=== PATIENT | female | born 1995 | race Caucasian/White ===

== ENCOUNTER 2017-02-21 11:23 | Emergency (ER) | payer SELFPAY ==
[2017-02-21] MEDS ORDERED: NORMAL SALINE 1000 ML 1,000 ML IV PRN (11:49)
[2017-02-21] MEDS ORDERED: METOCLOPRAMIDE HCL INJ/PF 10 MG/2 ML SDV IV ONE (11:49)
--- NOTE | 2017-02-21 11:51 | ER Document Report ---
ED Medical Screen (RME) - General Chief Complaint: Abdominal Pain Stated Complaint: NAUSEA/VOMITING Time Seen by Provider: 02/21/17 11:46 TRAVEL OUTSIDE OF THE [place] IN LAST 30 DAYS: No - HPI Patient complains to provider of: Nausea and vomiting Onset: Other - 2 days Quality of pain: Achy Associated Symptoms: Nausea, Vomiting Notes: 02/21/17 11:52 21-year-old female who presents to the emergency room for epigastric abdominal pain with nausea and vomiting 2 days duration, reports chills and subjective fever, no specific sick contacts that she works in a [employer] center, unsure whether she could be or not - Related Data Allergies/Adverse Reactions: ziprasidone HCl [From Geodon] Allergy (Intermediate, Verified 02/21/17 11:35) Oral swelling ziprasidone mesylate [From Geodon] Allergy (Intermediate, Verified 02/21/17 11: 35) Oral swelling amoxicillin [Amoxicillin] Allergy (Verified 02/21/17 11:35) Rash Past Medical History Pulmonary Medical History: Denies: Hx Asthma Endocrine Medical History: Denies: Hx Diabetes Mellitus Type 1, Hx Diabetes Mellitus Type 2 Renal/ Medical History: Denies: Hx Peritoneal Dialysis GI Medical History: Reports: Hx Gastroesophageal Reflux Disease Skin Medical History: Reports Hx Eczema Psychiatric Medical History: Reports: Hx Anxiety, Hx Attention Deficit Hyperactivity Disorder, Hx Bipolar Disorder, Hx Depression, Hx Post Traumatic Stress Disorder - Immunizations Immunizations up to date: Yes Hx Diphtheria, Pertussis, Tetanus Vaccination: Yes - 2013 Physical Exam - Vital signs Vitals: Temp Pulse Resp BP Pulse Ox 99.7 F 116 H 20 114/78 98 02/21/17 11:35 02/21/17 11:35 02/21/17 11:35 02/21/17 11:35 02/21/17 11:35 Course - Vital Signs Vital signs: Temp Pulse Resp BP Pulse Ox 99.7 F 116 H 20 114/78 98 02/21/17 11:35 02/21/17 11:35 02/21/17 11:35 02/21/17 11:35 02/21/17 11:35
[2017-02-21 12:29] LABS: ABSOLUTE BASOPHILS # (AUTO) 0.1 10^3/uL (0.0-0.2); ABSOLUTE EOSINOPHILS # (AUTO) 0.1 10^3/uL (0.0-0.6); ABSOLUTE LYMPHOCYTES (AUTO) 1.5 10^3/uL (0.5-4.7); ABSOLUTE NEUT (AUTO) 10.9 10^3/uL (1.7-8.2); BASOPHILS % (AUTO) 0.9 % (0-2); EOSINOPHILS % (AUTO) 0.5 % (0-6); HEMATOCRIT 42.4 % (36.0-47.0); HEMOGLOBIN 13.7 g/dL (12.0-15.5); HGB HCT DIFFERENCE -1.3; LYMPHOCYTES % (AUTO) 11.1 % (13-45); MEAN CORPUSCULAR HEMOGLOBIN 26.9 pg (27.0-33.4); MEAN CORPUSCULAR HGB CONC 32.3 g/dL (32.0-36.0); MEAN CORPUSCULAR VOLUME 83 fl (80-97); MONOCYTES % (AUTO) 7.3 % (3-13); RED BLOOD COUNT 5.09 10^6/uL (3.72-5.28); RED CELL DISTRIBUTION WIDTH 14.1 % (11.5-14.0); SEGMENTED NEUTROPHILS % (AUTO) 80.2 % (42-78); WHITE BLOOD COUNT 13.6 10^3/uL (4.0-10.5)
[2017-02-21 12:47] LABS: ALANINE AMINOTRANSFERASE 48 U/L (9-52); ALBUMIN 4.6 g/dL (3.5-5.0); ALKALINE PHOSPHATASE 133 U/L (38-126); ANION GAP 15 (5-19); ASPARTATE AMINO TRANSFERASE 27 U/L (14-36); BILIRUBIN,DIRECT 0.3 mg/dL (0.0-0.4); BILIRUBIN,TOTAL 0.7 mg/dL (0.2-1.3); BLOOD UREA NITROGEN 9 mg/dL (7-20); CALCIUM 9.6 mg/dL (8.4-10.2); CARBON DIOXIDE 21 mmol/L (22-30); CHLORIDE 104 mmol/L (98-107); CREATININE RESULT 0.85 mg/dL (0.52-1.25); GLUCOSE 95 mg/dL (75-110); LIPASE 139.6 U/L (23-300); POTASSIUM 4.5 mmol/L (3.6-5.0); SODIUM 140.1 mmol/L (137-145); TOTAL PROTEIN 8.3 g/dL (6.3-8.2)
[2017-02-21 12:53] LABS: APPEARANCE,URINE SLIGHTLY-CLOUDY; BILIRUBIN,URINE NEGATIVE (NEGATIVE); GLUCOSE, URINE NEGATIVE (NEGATIVE); KETONES,URINE TRACE mg/dL (NEGATIVE); LEUKOCYTE ESTERASE,URINE TRACE (NEGATIVE); NITRITE,URINE NEGATIVE (NEGATIVE); PROTEIN,URINE 30 mg/dL (NEGATIVE); URINE SPECIFIC GRAVITY 1.033; UROBILINOGEN,URINE NEGATIVE mg/dL (<2.0)
--- NOTE | 2017-02-21 14:03 | ER Document Report ---
ED GI/ - General Mode of Arrival: Ambulatory Information source: Patient TRAVEL OUTSIDE OF THE [place] IN LAST 30 DAYS: No - HPI Patient complains to provider of: Vomiting Associated symptoms: Other - See above <MALI BAKER - Last Filed: 02/21/17 14:24> <JENNIFER CLARK - Last Filed: 02/21/17 18:55> - General Chief Complaint: Vomiting Stated Complaint: NAUSEA/VOMITING Time Seen by Provider: 02/21/17 11:46 Notes: Patient is a 21 year old female who presents to the emergency department complaining of vomiting. Patient has been seen at this facility multiple times for vomiting. Patient reports she feels fine now and denies headache, abdominal pain, and nausea. Patient requests a work note. (MALI BAKER) - Related Data Allergies/Adverse Reactions: ziprasidone HCl [From Geodon] Allergy (Intermediate, Verified 02/21/17 11:35) Oral swelling ziprasidone mesylate [From Geodon] Allergy (Intermediate, Verified 02/21/17 11: 35) Oral swelling amoxicillin [Amoxicillin] Allergy (Verified 02/21/17 11:35) Rash Past Medical History - General Information source: Patient - Social History Smoking Status: Unknown if Ever Smoked Family History: Reviewed & Not Pertinent Patient has suicidal ideation: No Patient has homicidal ideation: No GI Medical History: Reports: Hx Gastroesophageal Reflux Disease Skin Medical History: Reports Hx Eczema Psychiatric Medical History: Reports: Hx Anxiety, Hx Attention Deficit Hyperactivity Disorder, Hx Bipolar Disorder, Hx Depression, Hx Post Traumatic Stress Disorder Surgical Hx: Negative - Immunizations Immunizations up to date: Yes Hx Diphtheria, Pertussis, Tetanus Vaccination: Yes - 2013 <MALI BAKER - Last Filed: 02/21/17 14:24> Review of Systems - Review of Systems Constitutional: No symptoms reported EENT: No symptoms reported Cardiovascular: No symptoms reported Respiratory: No symptoms reported Gastrointestinal: See HPI, Vomiting. denies: Abdominal pain, Diarrhea Genitourinary: No symptoms reported Female Genitourinary: No symptoms reported Musculoskeletal: No symptoms reported Skin: No symptoms reported Hematologic/Lymphatic: No symptoms reported Neurological/Psychological: denies: Headaches -: Yes All other systems reviewed and negative <MALI BAKER - Last Filed: 02/21/17 14:24> Physical Exam - Vital signs Interpretation: Normal - General General appearance: Appears well, Alert - HEENT Head: Normocephalic, Atraumatic Mucous membranes: Dry - Respiratory Respiratory status: No respiratory distress Chest status: Nontender Breath sounds: Normal Chest palpation: Normal - Cardiovascular Rhythm: Tachycardia Heart sounds: Normal auscultation Murmur: No - Back Back: Normal, Nontender - Extremities General upper extremity: Normal inspection General lower extremity: Normal inspection - Neurological Neuro grossly intact: Yes Cognition: Normal Orientation: AAOx4 Александр Coma Scale Eye Opening: Spontaneous Александр Coma Scale Verbal: Oriented Александр Coma Scale Motor: Obeys Commands [place] Coma Scale Total: 15 Speech: Normal - Psychological Associated symptoms: Normal affect, Normal mood - Skin Skin Temperature: Warm Skin Moisture: Dry Skin Color: Normal <MALI BAKER - Last Filed: 02/21/17 14:24> Course - Laboratory Result Diagrams: 02/21/17 12:00 02/21/17 12:00 <MALI BAKER - Last Filed: 02/21/17 14:24> - Laboratory Result Diagrams: 02/21/17 12:00 02/21/17 12:00 <JENNIFER CLARK - Last Filed: 02/21/17 18:55> - Re-evaluation Re-evalutation: 02/21/17 18:55 Patient feels better after medications and fluids. Blood work within normal limits. No abdominal pain or tenderness to palpation. She will be discharged home with Reglan. Return if any worsening or concerning symptoms. Stable for discharge. (JENNIFER CLARK) - Vital Signs Vital signs: Temp Pulse Resp BP Pulse Ox 98.0 F 100 20 119/66 97 02/21/17 14:27 02/21/17 14:27 02/21/17 11:35 02/21/17 14:27 02/21/17 14:27 - Laboratory Laboratory results interpreted by ok: 02/21/17 02/21/17 02/21/17 11:55 12:00 12:00 WBC 13.6 H MCH 26.9 L RDW 14.1 H Seg Neutrophils % 80.2 H Lymphocytes % 11.1 L Absolute Neutrophils 10.9 H Carbon Dioxide 21 L Alkaline Phosphatase 133 H Total Protein 8.3 H Urine Protein 30 H Urine Ketones TRACE H Ur Leukocyte Esterase TRACE H Discharge <MALI BAKER - Last Filed: 02/21/17 14:24> <JENNIFER CLARK - Last Filed: 02/21/17 18:55> - Discharge Clinical Impression: Dehydration Vomiting Qualifiers: Vomiting type: unspecified Vomiting Intractability: non-intractable Nausea presence: with nausea Qualified Code(s): R11.2 - Nausea with vomiting, unspecified Condition: Stable Disposition: HOME, SELF-CARE Instructions: Vomiting ([facility]), Intravenous (IV) Fluids ([facility]), Dehydration ([facility]) Prescriptions: Metoclopramide HCl [Reglan 10 mg Tablet] 1 tab PO TIDP PRN #25 tablet PRN Reason: Forms: Return to Work Scribe Attestation: 02/21/17 18:55 I personally performed the services described in the documentation, reviewed and edited the documentation which was dictated to the scribe in my presence, and it accurately records my words and actions. (JENNIFER CLARK) Scribe Documentation - Scribe Written by Carol:: carol Velasco, 02/21/17, [id number] acting as scribe for :: Leonora <MALI BAKER - Last Filed: 02/21/17 14:24>
[2017-02-21 14:30] VITALS: BP 119/66
== END 2017-02-21 14:30 | disposition home or self-care (01) ==
LOC: ER 11:23
DX: E86.0 Dehydration (principal); R11.2 Nausea with vomiting, unspecified; K21.9 Gastro-esophageal reflux disease without esophagitis; Z88.0 Allergy status to penicillin
CPT/HCPCS: 99284; 96361; 96374; 36415; 87086; 83690; 84703; 85025; 80053; 81001; J2765; J7030

== ENCOUNTER 2017-07-28 17:09 | Emergency (ER) | payer SELFPAY ==
[2017-07-28 19:37] LABS: ABSOLUTE BASOPHILS # (AUTO) 0.1 10^3/uL (0.0-0.2); ABSOLUTE EOSINOPHILS # (AUTO) 0.1 10^3/uL (0.0-0.6); ABSOLUTE LYMPHOCYTES (AUTO) 2.9 10^3/uL (0.5-4.7); ABSOLUTE MONOCYTES (AUTO) 0.9 10^3/uL (0.1-1.4); ABSOLUTE NEUT (AUTO) 7.7 10^3/uL (1.7-8.2); BASOPHILS % (AUTO) 0.5 % (0-2); EOSINOPHILS % (AUTO) 0.7 % (0-6); HEMATOCRIT 36.5 % (36.0-47.0); HEMOGLOBIN 12.1 g/dL (12.0-15.5); HGB HCT DIFFERENCE -0.2; LYMPHOCYTES % (AUTO) 24.6 % (13-45); MEAN CORPUSCULAR HEMOGLOBIN 27.3 pg (27.0-33.4); MEAN CORPUSCULAR HGB CONC 33.2 g/dL (32.0-36.0); MEAN CORPUSCULAR VOLUME 82 fl (80-97); MONOCYTES % (AUTO) 8.2 % (3-13); RED BLOOD COUNT 4.45 10^6/uL (3.72-5.28); RED CELL DISTRIBUTION WIDTH 14.3 % (11.5-14.0); WHITE BLOOD COUNT 11.6 10^3/uL (4.0-10.5)
[2017-07-28 19:53] LABS: BILIRUBIN,URINE NEGATIVE (NEGATIVE); GLUCOSE, URINE NEGATIVE (NEGATIVE); KETONES,URINE NEGATIVE (NEGATIVE); LEUKOCYTE ESTERASE,URINE TRACE (NEGATIVE); NITRITE,URINE NEGATIVE (NEGATIVE); PROTEIN,URINE 30 mg/dL (NEGATIVE)
[2017-07-28 19:54] LABS: APPEARANCE,URINE HAZY
[2017-07-28 20:00] LABS: ALANINE AMINOTRANSFERASE 45 U/L (9-52); ALBUMIN 4.3 g/dL (3.5-5.0); ALKALINE PHOSPHATASE 107 U/L (38-126); ANION GAP 15 (5-19); ASPARTATE AMINO TRANSFERASE 25 U/L (14-36); BILIRUBIN,DIRECT 0.4 mg/dL (0.0-0.4); BILIRUBIN,TOTAL 0.4 mg/dL (0.2-1.3); BLOOD UREA NITROGEN 10 mg/dL (7-20); CALCIUM 9.1 mg/dL (8.4-10.2); CARBON DIOXIDE 21 mmol/L (22-30); CHLORIDE 106 mmol/L (98-107); CREATININE RESULT 0.64 mg/dL (0.52-1.25); GLUCOSE 104 mg/dL (75-110); POTASSIUM 4.2 mmol/L (3.6-5.0); SODIUM 141.7 mmol/L (137-145); TOTAL PROTEIN 7.2 g/dL (6.3-8.2)
--- NOTE | 2017-07-28 20:23 | ER Document Report ---
ED Dizziness/Weakness - General Chief Complaint: Exhaustion, mood swings, weakness Stated Complaint: FEELING WEAK Time Seen by Provider: 07/28/17 18:48 Mode of Arrival: Ambulatory Information source: Patient Notes: Patient states that she has been feeling weak with mood swings for about 2 weeks. She states she is unsure if she is depressed or if there may be something physically wrong with her. Nothing makes it better or worse. There is no radiation symptoms. Symptoms have been intermittent. They are moderate to severe. Patient denies any suicidal or homicidal ideation. No auditory or visual hallucinations. TRAVEL OUTSIDE OF THE [place] IN LAST 30 DAYS: No - Related Data Allergies/Adverse Reactions: ziprasidone HCl [From Geodon] Allergy (Intermediate, Verified 05/09/17 15:42) Oral swelling ziprasidone mesylate [From Geodon] Allergy (Intermediate, Verified 05/09/17 15: 42) Oral swelling amoxicillin [Amoxicillin] Allergy (Verified 05/09/17 15:42) Rash Past Medical History - General Information source: Patient - Social History Smoking Status: Never Smoker Frequency of alcohol use: None Drug Abuse: None Family History: Reviewed & Not Pertinent Patient has suicidal ideation: No Patient has homicidal ideation: No Pulmonary Medical History: Denies: Hx Asthma Endocrine Medical History: Denies: Hx Diabetes Mellitus Type 1, Hx Diabetes Mellitus Type 2 Renal/ Medical History: Denies: Hx Peritoneal Dialysis GI Medical History: Reports: Hx Gastroesophageal Reflux Disease Skin Medical History: Reports Hx Eczema Psychiatric Medical History: Reports: Hx Anxiety, Hx Attention Deficit Hyperactivity Disorder, Hx Bipolar Disorder, Hx Depression, Hx Post Traumatic Stress Disorder - Immunizations Immunizations up to date: Yes Hx Diphtheria, Pertussis, Tetanus Vaccination: Yes - 2013 Review of Systems - Review of Systems Constitutional: Malaise, Weakness. denies: Chills, Fever Respiratory: denies: Cough, Short of breath Gastrointestinal: denies: Diarrhea, Vomiting -: Yes All other systems reviewed and negative Physical Exam - Vital signs Vitals: Temp Pulse Resp BP Pulse Ox 99.0 F 104 H 16 123/82 97 07/28/17 17:14 07/28/17 17:14 07/28/17 17:14 07/28/17 17:14 07/28/17 17:14 Interpretation: Hypertensive, Tachycardic - General General appearance: Appears well, Alert - HEENT Head: Normocephalic, Atraumatic Eyes: Normal Pupils: PERRL - Respiratory Respiratory status: No respiratory distress Chest status: Nontender Breath sounds: Normal Chest palpation: Normal - Cardiovascular Rhythm: Regular Heart sounds: Normal auscultation Murmur: No - Abdominal Inspection: Normal Distension: No distension Bowel sounds: Normal Tenderness: Nontender Organomegaly: No organomegaly - Back Back: Normal, Nontender - Extremities General upper extremity: Normal inspection, Nontender, Normal color, Normal ROM , Normal temperature General lower extremity: Normal inspection, Nontender, Normal color, Normal ROM , Normal temperature, Normal weight bearing. No: Vahe's sign - Neurological Neuro grossly intact: Yes Cognition: Normal Orientation: AAOx4 Александр Coma Scale Eye Opening: Spontaneous Александр Coma Scale Verbal: Oriented Александр Coma Scale Motor: Obeys Commands Александр Coma Scale Total: 15 Speech: Normal Motor strength normal: LUE, RUE, LLE, RLE Sensory: Normal - Psychological Associated symptoms: Normal affect, Normal mood - Skin Skin Temperature: Warm Skin Moisture: Dry Skin Color: Normal Course - Vital Signs Vital signs: Temp Pulse Resp BP Pulse Ox 99.0 F 104 H 16 123/82 97 07/28/17 17:14 07/28/17 17:14 07/28/17 17:14 07/28/17 17:14 07/28/17 17:14 - Laboratory Result Diagrams: 07/28/17 19:14 07/28/17 19:14 Laboratory results interpreted by me: 07/28/17 07/28/17 07/28/17 19:14 19:14 19:14 WBC 11.6 H RDW 14.3 H Carbon Dioxide 21 L Urine Protein 30 H Urine Urobilinogen 2.0 H Ur Leukocyte Esterase TRACE H Discharge - Discharge Clinical Impression: Weakness Condition: Stable Disposition: HOME, SELF-CARE Instructions: Weakness ([facility], [facility]) Additional Instructions: Your blood pressure is mildly elevated. Please have this rechecked within 1 week by your doctor. Forms: Elevated Blood Pressure Referrals: MAGDALENA ORNELAS MD [COMMUNITY BASED STAFF] - Follow up as needed
[2017-07-28 20:47] VITALS: BP 111/68
== END 2017-07-28 20:43 | disposition home or self-care (01) ==
LOC: ER 17:09
DX: R53.1 Weakness (principal)
CPT/HCPCS: 36415; 80053; 81001; 81025; 85025; 99285

== ENCOUNTER 2017-09-23 20:25 | Emergency (ER) | payer SELFPAY ==
[2017-09-23 22:05] LABS: ABSOLUTE BASOPHILS # (AUTO) 0.1 10^3/uL (0.0-0.2); ABSOLUTE EOSINOPHILS # (AUTO) 0.1 10^3/uL (0.0-0.6); ABSOLUTE LYMPHOCYTES (AUTO) 2.7 10^3/uL (0.5-4.7); ABSOLUTE MONOCYTES (AUTO) 0.7 10^3/uL (0.1-1.4); ABSOLUTE NEUT (AUTO) 6.1 10^3/uL (1.7-8.2); BASOPHILS % (AUTO) 0.6 % (0-2); EOSINOPHILS % (AUTO) 0.9 % (0-6); HEMATOCRIT 39.3 % (36.0-47.0); MEAN CORPUSCULAR HEMOGLOBIN 27.3 pg (27.0-33.4); MEAN CORPUSCULAR VOLUME 83 fl (80-97); MONOCYTES % (AUTO) 7.6 % (3-13); PLATELET COUNT 375 10^3/uL (150-450); RED BLOOD COUNT 4.74 10^6/uL (3.72-5.28); RED CELL DISTRIBUTION WIDTH 14.4 % (11.5-14.0); SEGMENTED NEUTROPHILS % (AUTO) 62.9 % (42-78); TOTAL CELLS COUNTED % (AUTO) 100 %; WHITE BLOOD COUNT 9.7 10^3/uL (4.0-10.5)
[2017-09-23 22:09] LABS: APPEARANCE,URINE SLIGHTLY-CLOUDY; BILIRUBIN,URINE NEGATIVE (NEGATIVE); COLOR,URINE YELLOW; GLUCOSE, URINE NEGATIVE (NEGATIVE); KETONES,URINE NEGATIVE (NEGATIVE); LEUKOCYTE ESTERASE,URINE TRACE (NEGATIVE); NITRITE,URINE NEGATIVE (NEGATIVE); PROTEIN,URINE NEGATIVE (NEGATIVE); URINE SPECIFIC GRAVITY 1.033; UROBILINOGEN,URINE NEGATIVE mg/dL (<2.0)
[2017-09-23 22:22] LABS: URINE AMPHETAMINES SCREEN NEGATIVE; URINE BARBITURATES SCREEN NEGATIVE; URINE BENZODIAZEPINES SCREEN NEGATIVE; URINE COCAINE SCREEN NEGATIVE; URINE MARIJUANA (THC) SCREEN NEGATIVE; URINE METHADONE SCREEN NEGATIVE; URINE PHENCYCLIDINE SCREEN NEGATIVE
[2017-09-23 22:24] LABS: ACETAMINOPHEN < 10 ug/mL (10-30); ALANINE AMINOTRANSFERASE 40 U/L (9-52); ALBUMIN 4.8 g/dL (3.5-5.0); ALCOHOL < 10 mg/dL (NONE DETECTED); ALKALINE PHOSPHATASE 91 U/L (38-126); ANION GAP 15 (5-19); ASPARTATE AMINO TRANSFERASE 22 U/L (14-36); BILIRUBIN,DIRECT 0.2 mg/dL (0.0-0.4); BILIRUBIN,TOTAL 0.2 mg/dL (0.2-1.3); BLOOD UREA NITROGEN 13 mg/dL (7-20); CARBON DIOXIDE 23 mmol/L (22-30); CHLORIDE 105 mmol/L (98-107); GLUCOSE 98 mg/dL (75-110); POTASSIUM 4.5 mmol/L (3.6-5.0); SALICYLATE < 1.0 mg/dL (2.0-20.0); SODIUM 143.1 mmol/L (137-145); TOTAL PROTEIN 7.8 g/dL (6.3-8.2)
--- NOTE | 2017-09-23 22:32 | ER Document Report ---
ED General - General TRAVEL OUTSIDE OF THE [place] IN LAST 30 DAYS: No <TATI TORREZ - Last Filed: 09/24/17 05:45> <ANTONIO ORTEGA - Last Filed: 09/24/17 10:14> <WES PABLO - Last Filed: 09/24/17 10:48> - General Chief Complaint: Suicidal Ideation Stated Complaint: SUICIDIAL IDEATION Time Seen by Provider: 09/23/17 22:04 Notes: Patient is a pleasant 21-year-old female who says she has a history of depression. She also has a history of suicide attempts. She did try to hurt herself and [place] and over New Year's [place]. Recently she started become very depressed again. She says she is not suicidal her doctor asked her come to the ER/to be evaluated by psychiatry. She is currently not on any medications for depression. She says she is depressed but does not have any plan for suicide. She has no other complaints at this time. She is agreeable and voluntary to see psychiatry. (TATI TORREZ) - Related Data Allergies/Adverse Reactions: ziprasidone HCl [From Geodon] Allergy (Intermediate, Verified 05/09/17 15:42) Oral swelling ziprasidone mesylate [From Geodon] Allergy (Intermediate, Verified 05/09/17 15: 42) Oral swelling amoxicillin [Amoxicillin] Allergy (Verified 05/09/17 15:42) Rash Past Medical History - Social History Smoking Status: Never Smoker Frequency of alcohol use: None Drug Abuse: None Family History: Reviewed & Not Pertinent Pulmonary Medical History: Denies: Hx Asthma Endocrine Medical History: Denies: Hx Diabetes Mellitus Type 1, Hx Diabetes Mellitus Type 2 Renal/ Medical History: Denies: Hx Peritoneal Dialysis GI Medical History: Reports: Hx Gastroesophageal Reflux Disease Skin Medical History: Reports Hx Eczema Psychiatric Medical History: Reports: Hx Anxiety, Hx Attention Deficit Hyperactivity Disorder, Hx Bipolar Disorder, Hx Depression, Hx Post Traumatic Stress Disorder - Immunizations Immunizations up to date: Yes Hx Diphtheria, Pertussis, Tetanus Vaccination: Yes - 2013 <TATI TORREZ - Last Filed: 09/24/17 05:45> Review of Systems <TATI TORREZ - Last Filed: 09/24/17 05:45> <ANTONIO ORTEGA - Last Filed: 09/24/17 10:14> <WES PABLO - Last Filed: 09/24/17 10:48> - Review of Systems Notes: My Normal Review Basic REVIEW OF SYSTEMS: CONSTITUTIONAL : Denies fever, chills, or sweats. Denies recent illness. EENT: Denies eye, ear, throat, or mouth pain or symptoms. Denies nasal or sinus congestion. CARDIOVASCULAR: No chest pain RESPIRATORY: Denies cough, cold, or chest congestion. Denies shortness of breath, difficulty breathing, or wheezing. GASTROINTESTINAL: Denies abdominal pain. Denies nausea, vomiting, or diarrhea. Denies constipation. Last BM: MUSCULOSKELETAL: Denies neck or back pain or joint pain or swelling. SKIN: Denies rash or skin lesions. NEUROLOGICAL: Denies altered mental status or loss of consciousness. Denies headache. Denies weakness or paralysis or loss of use of either side. Denies problems with gait or speech. Denies sensory or motor loss. PSYCHIATRIC: Depression ALL OTHER SYSTEMS REVIEWED AND NEGATIVE. (TATI TORREZ) Physical Exam <TATI TORREZ - Last Filed: 09/24/17 05:45> <ANTONIO ORTEGA - Last Filed: 09/24/17 10:14> <WES PABLO - Last Filed: 09/24/17 10:48> - Vital signs Vitals: Temp Pulse Resp BP Pulse Ox 98.8 F 65 18 127/74 H 97 09/23/17 20:46 09/23/17 20:46 09/23/17 20:46 09/23/17 20:46 09/23/17 20:46 - Notes Notes: General Appearance: Well nourished, alert, cooperative, no acute distress, no obvious discomfort. Well-appearing. Vitals: reviewed, See vital signs table. Head: no swelling or tenderness to the head Eyes: PERRL, EOMI, Conjuctiva clear Mouth: No decreasd moisture Lungs: No wheezing, No rales, No rhonci, No accessory muscle use, good air exchange bilaterally. Heart: Normal rate, Regular rythm, No murmur, no rub Abdomen: Normal BS, soft, No rigidity, No abdominal tenderness, No guarding, no rebound, no abdominal masses, no organomegaly Extremities: strength 5/5 in all extremities, good pulses in all extremities, no swelling or tenderness in the extremities, no edema. Skin: warm, dry, appropriate color, no rash Neuro: speech clear, oriented x 3, normal affect, responds appropriately to questions. (TATI TORREZ) Course - Laboratory Result Diagrams: 09/23/17 21:36 09/23/17 21:36 <TATI TORREZ - Last Filed: 09/24/17 05:45> - Laboratory Result Diagrams: 09/23/17 21:36 09/23/17 21:36 <ANTONIO ORTEGA - Last Filed: 09/24/17 10:14> - Laboratory Result Diagrams: 09/23/17 21:36 09/23/17 21:36 <WES PABLO - Last Filed: 09/24/17 10:48> - Re-evaluation Re-evalutation: 09/24/17 05:45 Patient looks well. She is very cooperative. She does want help. She is voluntary to see psychiatry. She is not suicidal at this time. She does not meet IVC criteria. Patient is medically stable for psychiatric evaluation. Dictation of this chart was performed using voice recognition software; therefore, there may be some unintended grammatical errors. (TATI TORREZ) - Vital Signs Vital signs: Temp Pulse Resp BP Pulse Ox 98.6 F 98 14 125/73 97 09/24/17 04:13 09/24/17 04:13 09/24/17 04:13 09/24/17 04:13 09/24/17 04:13 - Laboratory Laboratory results interpreted by me: 09/23/17 09/23/17 09/23/17 21:36 21:36 21:36 RDW 14.4 H Ur Leukocyte Esterase TRACE H Salicylates < 1.0 L Acetaminophen < 10 L - EKG Interpretation by Me Additional EKG results interpreted by me: 09/23/17 22:32 She is reviewed and interpreted by me. EKG shows normal sinus rhythm with a rate of [address] segment elevation or depression. No ischemic T-wave inversions. ME interval, QRS duration, QTc intervals are within normal range. Old EKG for comparison is from September 02, 2015. (TATI TORREZ) Discharge <TATI TORREZ - Last Filed: 09/24/17 05:45> <ANTONIO ORTEGA - Last Filed: 09/24/17 10:14> <WES PABLO - Last Filed: 09/24/17 10:48> - Discharge Clinical Impression: Bipolar disorder, unspecified Qualifiers: Active/Remission status: in remission of unspecified degree Qualified Code(s): F31.70 - Bipolar disorder, currently in remission, most recent episode unspecified Clinical Impression: (Ruled Out): Depression Condition: Stable Disposition: HOME, SELF-CARE Additional Instructions: Bipolar Disorder Bipolar disorder is also called manic-depressive disorder. Depression alternates with brain hyperactivity called gilberto. Each phase lasts from several days to a few weeks. We don't know exactly what causes bipolar disorder , but it's treatable. During the "manic phase," you may feel elated and energetic. You may have racing thoughts, rapid speech, increased activity, and grandiose ideas. During this time, you may not realize how poor your judgement is. Inappropriate spending, drug abuse, excessive alcohol use, marriage problems, and irresponsible sexual behavior are common during the manic phase. During the "depressive phase," you might feel depressed, guilty, worthless , fatigued, and unable to concentrate. You might have thoughts of suicide. Good treatments are available for bipolar disorder. Garwin is a classic drug for bipolar disorder, and is still often useful. If the manic phase is very mild, an antidepressant alone can be prescribed. If the manic phase is very severe, an antipsychotic medicine (such as Haldol) may be needed. The treatment must be matched to your symptoms, so it's important to work closely with your psychiatric care provider. Contact your physician, the hospital emergency center, crisis line, or your counsellor if you are losing control or having self-destructive thoughts. DEPRESSION: Your evaluation reveals that you have mental depression. While symptoms may be vague, they often include disturbance of sleep, fatigue, loss of appetite , and general loss of interest in life. While depression may be a side effect of drugs, or a reaction to a major change in your life, many cases have no known cause. If depression is acute, and related to a major loss in your life, you can expect it to clear completely with time. If you have been depressed a long time , are prone to repeated bouts of depression or low mood, or have been thinking of suicide, get help. Depression can be treated with anti-depressant medication and counselling. Long-term depression will often take a few weeks to clear, even with appropriate medication. Follow-up care is important. SUICIDAL IDEATION: Suicidal ideation is a common medical term for thoughts about suicide, which may be as detailed as a formulated plan, without the suicidal act itself. Although most people who undergo suicidal ideation do not commit suicide, some go on to make suicide attempts. The range of suicidal ideation varies greatly from fleeting to detailed planning, role playing, and unsuccessful attempts. While thoughts about suicide are common, most people do not carry out serious actions to commit suicide. Based upon your evaluation and discussion with you, we do not believe you are currently at risk to act upon your thoughts of suicide. You have agreed to return to the Emergency Department, at any time , if you feel inclined to act upon your suicidal thoughts. FOLLOW-UP CARE: Please follow-up with your outpatient mental health provider, [facility], at your regular scheduled appointment on 09/29/2017. If you experience worsening or a significant change in your symptoms, notify the physician immediately or return to the Emergency Department at any time for re-evaluation. Prescriptions: Hydroxyzine Pamoate [Vistaril 50 mg Capsule] 50 mg PO Q8HP PRN #20 capsule PRN Reason: Oxcarbazepine [Trileptal] 150 mg PO BID #28 tablet Referrals: [facility] [Outside] - 09/29/17
[2017-09-24] MEDS ORDERED: FAMOTIDINE 20 MG TABLET PO ONE (02:29)
--- NOTE | 2017-09-24 09:31 | ER Document Report ---
Doctor's Note Notes: 09/24/17 09:30 Rounds: Chart reviewed. Patient interviewed Patient being evaluated for depression and suicidal thoughts although she does not feel suicidal at this time. Vital signs are all normal. Lab studies were all normal. Patient appears to be medically stable for transfer or discharge. Hany Montero MD
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
[2017-09-24 11:03] VITALS: BP 120/76
--- NOTE | 2017-09-24 23:25 | EKG REPORT ---
SEVERITY:- NORMAL ECG - SINUS RHYTHM : Confirmed by: Spencer Husain 24-Sep-2017 23:25:17
== END 2017-09-24 11:19 | disposition home or self-care (01) ==
LOC: ER 20:25
DX: F31.70 Bipolar disorder, currently in remission, most recent episode unspecified (principal); Z91.5 Personal history of self-harm; Z88.8 Allergy status to other drugs, medicaments and biological substances; Z88.0 Allergy status to penicillin
CPT/HCPCS: 36415; 80053; 80307; 81001; 84703; 85025; 93005; 93010; 99285

== ENCOUNTER 2018-03-07 08:10 | Emergency (ER) | payer SELFPAY ==
[2018-03-07] MEDS ORDERED: NORMAL SALINE 1000 ML 1,000 ML IV ONE (08:36)
[2018-03-07] MEDS ORDERED: ONDANSETRON 4 MG TAB.RAPDIS PO ONE (08:37)
[2018-03-07 09:07] LABS: ABSOLUTE BASOPHILS # (AUTO) 0.1 10^3/uL (0.0-0.2); ABSOLUTE EOSINOPHILS # (AUTO) 0.1 10^3/uL (0.0-0.6); ABSOLUTE LYMPHOCYTES (AUTO) 3.7 10^3/uL (0.5-4.7); ABSOLUTE MONOCYTES (AUTO) 0.9 10^3/uL (0.1-1.4); ABSOLUTE NEUT (AUTO) 5.6 10^3/uL (1.7-8.2); BASOPHILS % (AUTO) 0.9 % (0-2); EOSINOPHILS % (AUTO) 1.1 % (0-6); HEMATOCRIT 35.5 % (36.0-47.0); HEMOGLOBIN 11.7 g/dL (12.0-15.5); LYMPHOCYTES % (AUTO) 35.2 % (13-45); MEAN CORPUSCULAR HEMOGLOBIN 26.9 pg (27.0-33.4); MEAN CORPUSCULAR VOLUME 81 fl (80-97); MONOCYTES % (AUTO) 9.1 % (3-13); PLATELET COUNT 329 10^3/uL (150-450); RED BLOOD COUNT 4.36 10^6/uL (3.72-5.28); RED CELL DISTRIBUTION WIDTH 14.9 % (11.5-14.0); SEGMENTED NEUTROPHILS % (AUTO) 53.7 % (42-78); TOTAL CELLS COUNTED % (AUTO) 100 %; WHITE BLOOD COUNT 10.4 10^3/uL (4.0-10.5)
[2018-03-07 09:26] LABS: APPEARANCE,URINE SLIGHTLY-CLOUDY; BILIRUBIN,URINE NEGATIVE (NEGATIVE); COLOR,URINE YELLOW; GLUCOSE, URINE NEGATIVE (NEGATIVE); KETONES,URINE NEGATIVE (NEGATIVE); LEUKOCYTE ESTERASE,URINE MODERATE (NEGATIVE); NITRITE,URINE NEGATIVE (NEGATIVE); PROTEIN,URINE NEGATIVE (NEGATIVE); URINE SPECIFIC GRAVITY 1.015; UROBILINOGEN,URINE NEGATIVE mg/dL (<2.0)
[2018-03-07 10:06] LABS: ALANINE AMINOTRANSFERASE 33 U/L (9-52); ALKALINE PHOSPHATASE 84 U/L (38-126); ANION GAP 10 (5-19); ASPARTATE AMINO TRANSFERASE 18 U/L (14-36); BILIRUBIN,DIRECT 0.2 mg/dL (0.0-0.4); BILIRUBIN,TOTAL 0.2 mg/dL (0.2-1.3); BLOOD UREA NITROGEN 11 mg/dL (7-20); CALCIUM 8.9 mg/dL (8.4-10.2); CARBON DIOXIDE 24 mmol/L (22-30); CHLORIDE 108 mmol/L (98-107); GLUCOSE 107 mg/dL (75-110); LIPASE 227.5 U/L (23-300); POTASSIUM 4.4 mmol/L (3.6-5.0); SODIUM 142.4 mmol/L (137-145); TOTAL PROTEIN 6.5 g/dL (6.3-8.2)
--- NOTE | 2018-03-07 11:33 | ER Document Report ---
ED General - General Chief Complaint: Nausea/Vomiting/Diarrhea Stated Complaint: NAUSEA/VOMITING/DIARRHEA Time Seen by Provider: 03/07/18 08:29 TRAVEL OUTSIDE OF THE [place]. IN LAST 30 DAYS: No - HPI Patient complains to provider of: Nausea vomiting diarrhea epigastric abdominal pain Notes: Patient with a history of the symptoms that she has a referral to GI physician however is not seen a GI consult of yet. Symptoms started earlier this morning patient states he has been compliant with her Zantac and omeprazole. Patient denies any fevers or chills no trauma no alcohol no smoking. - Related Data Allergies/Adverse Reactions: ziprasidone HCl [From Geodon] Allergy (Intermediate, Verified 03/07/18 08:13) Oral swelling ziprasidone mesylate [From Geodon] Allergy (Intermediate, Verified 03/07/18 08: 13) Oral swelling amoxicillin [Amoxicillin] Allergy (Verified 03/07/18 08:13) Rash Past Medical History - Social History Smoking Status: Never Smoker Chew tobacco use (# tins/day): No Frequency of alcohol use: None Drug Abuse: None Family History: Reviewed & Not Pertinent Patient has suicidal ideation: No Patient has homicidal ideation: No Pulmonary Medical History: Denies: Hx Asthma Endocrine Medical History: Denies: Hx Diabetes Mellitus Type 1, Hx Diabetes Mellitus Type 2 Renal/ Medical History: Denies: Hx Peritoneal Dialysis GI Medical History: Reports: Hx Gastroesophageal Reflux Disease Skin Medical History: Reports Hx Eczema Psychiatric Medical History: Reports: Hx Anxiety, Hx Attention Deficit Hyperactivity Disorder, Hx Bipolar Disorder, Hx Depression, Hx Post Traumatic Stress Disorder - Immunizations Immunizations up to date: Yes Hx Diphtheria, Pertussis, Tetanus Vaccination: Yes - 2013 Review of Systems - Review of Systems Constitutional: No symptoms reported EENT: No symptoms reported Cardiovascular: No symptoms reported Respiratory: No symptoms reported Gastrointestinal: Abdominal pain, Diarrhea, Nausea, Vomiting Genitourinary: No symptoms reported Female Genitourinary: No symptoms reported Musculoskeletal: No symptoms reported Skin: No symptoms reported Hematologic/Lymphatic: No symptoms reported Neurological/Psychological: No symptoms reported -: Yes All other systems reviewed and negative Physical Exam - Vital signs Vitals: Temp Pulse Resp BP Pulse Ox 99.0 F 79 20 121/63 98 03/07/18 08:14 03/07/18 08:14 03/07/18 08:14 03/07/18 08:14 03/07/18 08:14 Interpretation: Normal - General General appearance: Appears well, Alert - HEENT Head: Normocephalic, Atraumatic Eyes: Normal Pupils: PERRL - Respiratory Respiratory status: No respiratory distress Chest status: Nontender Breath sounds: Normal Chest palpation: Normal - Cardiovascular Rhythm: Regular Heart sounds: Normal auscultation Murmur: No - Abdominal Inspection: Normal, Obese Distension: No distension Bowel sounds: Normal Tenderness: Nontender Organomegaly: No organomegaly - Back Back: Normal, Nontender - Extremities General upper extremity: Normal inspection, Nontender, Normal color, Normal ROM , Normal temperature General lower extremity: Normal inspection, Nontender, Normal color, Normal ROM , Normal temperature, Normal weight bearing. No: Vahe's sign - Neurological Neuro grossly intact: Yes Cognition: Normal Orientation: AAOx4 Weston Coma Scale Eye Opening: Spontaneous Weston Coma Scale Verbal: Oriented Weston Coma Scale Motor: Obeys Commands Weston Coma Scale Total: 15 Speech: Normal Motor strength normal: LUE, RUE, LLE, RLE Sensory: Normal - Psychological Associated symptoms: Normal affect, Normal mood - Skin Skin Temperature: Warm Skin Moisture: Dry Skin Color: Normal Course - Re-evaluation Re-evalutation: 03/07/18 16:24 The patient presents with abdominal pain without signs of peritonitis or other life-threatening or serious etiology. The patient appears stable for discharge and has been instructed to return immediately if the symptoms worsen in any way , or in 8-12hr if not improved for re-evaluation. The patient has been instructed to return if the symptoms worsen or change in any way. We will add Carafate to the patient's regimen I will encourage patient to follow-up with her GI specialist - Vital Signs Vital signs: Temp Pulse Resp BP Pulse Ox 98.2 F 73 18 116/65 99 03/07/18 11:47 03/07/18 11:47 03/07/18 11:47 03/07/18 11:47 03/07/18 11:47 - Laboratory Result Diagrams: 03/07/18 08:57 03/07/18 09:34 Laboratory results interpreted by me: 03/07/18 03/07/18 03/07/18 08:57 09:07 09:34 Hgb 11.7 L Hct 35.5 L MCH 26.9 L RDW 14.9 H Chloride 108 H Urine Blood MODERATE H Ur Leukocyte Esterase MODERATE H Discharge - Discharge Clinical Impression: Nausea vomiting and diarrhea Abdominal pain Qualifiers: Abdominal location: unspecified location Qualified Code(s): R10.9 - Unspecified abdominal pain Condition: Good Disposition: HOME, SELF-CARE Instructions: Abdominal Pain ([facility]), Gastroenteritis (adult) ([facility]), Vomiting ( [facility]) Additional Instructions: Please take to a bland diet for the next few days. Please continue all medications as prescribed. Return to the ER for any other concerns. Your laboratory studies today do not show any signs of acute infection or any surgical cause of your abdominal pain. I would highly recommend that you follow -up with your GI specialist. Prescriptions: Sucralfate [Carafate 1 gm Tablet] 1 gm PO ACHS #120 tablet Forms: Return to Work
[2018-03-07 11:48] VITALS: BP 116/65
== END 2018-03-07 11:48 | disposition home or self-care (01) ==
LOC: ER 08:10
DX: R11.2 Nausea with vomiting, unspecified (principal); R19.7 Diarrhea, unspecified; R10.13 Epigastric pain; Z79.899 Other long term (current) drug therapy; Z88.8 Allergy status to other drugs, medicaments and biological substances; Z88.0 Allergy status to penicillin
CPT/HCPCS: 99284; 96360; 36415; 84702; 83690; 85025; 80053; 81001; S0119; J7030

== ENCOUNTER 2018-03-16 20:42 | Emergency (ER) | payer SELFPAY ==
[2018-03-16 21:14] VITALS: BP 132/81
[2018-03-16] MEDS ORDERED: PREDNISONE 10 MG TABLET PO ONE (23:12)
[2018-03-16] MEDS ORDERED: CLINDAMYCIN HCL 150 MG CAPSULE PO ONE (23:12)
--- NOTE | 2018-03-16 23:13 | ER Document Report ---
ED ENT - General Chief Complaint: Sore Throat Stated Complaint: SORE THROAT Time Seen by Provider: 03/16/18 23:03 Mode of Arrival: Ambulatory Information source: Patient Notes: Chief complaint: Sore throat History of complain:( obtained from----patient) 22 years old female presents today with 4 day history of runny nose sore throat nasal congestion and right ear pain. Coughing on and off largely dry cough. Denies any difficulty in breathing or wheezing. Onset: As above Duration: 4 days Severity: Moderate Quality: Dull Context: Possible URI Exacerbating factor and relieving factors: None REVIEW OF SYSTEMS: CONSTITUTIONAL : Denies fever, chills, or sweats. Denies recent illness. EENT: Denies eye, ear, throat, or mouth pain or symptoms. Denies nasal or sinus congestion or discharge. Denies throat, tongue, or mouth swelling or difficulty swallowing. CARDIOVASCULAR: Denies chest pain. Denies palpitations or racing or irregular heart beat. Denies ankle edema. RESPIRATORY: Denies cough, cold, or chest congestion. Denies shortness of breath, difficulty breathing, or wheezing. GASTROINTESTINAL: Denies distention. Denies nausea, vomiting, or diarrhea. Denies blood in vomitus, stools, or per rectum. Denies black, tarry stools. Denies constipation. GENITOURINARY: Denies difficulty urinating, painful urination, burning, frequency, blood in urine, or discharge. FEMALE GENITOURINARY: Denies vaginal bleeding, heavy or abnormal periods, irregular periods. Denies vaginal discharge or odor. MUSCULOSKELETAL: Denies back or neck pain or stiffness. Denies joint pain or swelling. SKIN: Denies rash, lesions or sores. HEMATOLOGIC : Denies easy bruising or bleeding. LYMPHATIC: Denies swollen, enlarged glands. NEUROLOGICAL: Denies confusion or altered mental status. Denies passing out or loss of consciousness. Denies dizziness or lightheadedness. Denies headache. Denies weakness or paralysis or loss of use of either side. Denies problems with gait or speech. Denies sensory loss, numbness, or tingling. Denies seizures. PSYCHIATRIC: Denies anxiety or stress. Denies depression, suicidal ideation, or homicidal ideation. ALL OTHER SYSTEMS REVIEWED AND NEGATIVE. PHYSICAL EXAMINATION: GENERAL: Well-appearing, well-nourished and in no acute distress. Obesity HEAD: Atraumatic, normocephalic. EYES: Pupils equal round and reactive to light, extraocular movements intact, conjunctiva are normal. ENT: Right ear tympanic membrane is bulging as well as erythematous.-No obvious exudate noted, pharyngotonsillar mucosa was erythematous with tonsillar exudates and erythema noted. NECK: Normal range of motion, supple without lymphadenopathy LUNGS: Breath sounds clear to auscultation bilaterally and equal. No wheezes rales or rhonchi. HEART: Regular rate and rhythm without murmurs ABDOMEN: Soft, nontender, nondistended abdomen. No guarding, no rebound. No masses appreciated. Examination of genitals-deferred Musculoskeletal: Normal range of motion, no pitting or edema. No cyanosis. NEUROLOGICAL: Cranial nerves grossly intact. Normal speech, normal gait. Normal sensory, motor exams PSYCH: Normal mood, normal affect. SKIN: Warm, Dry, normal turgor, no rashes or lesions noted. Dictation was performed using [employer] voice recognition software TRAVEL OUTSIDE OF THE [place]. IN LAST 30 DAYS: No - HPI Onset: Just prior to arrival - Related Data Allergies/Adverse Reactions: ziprasidone HCl [From Geodon] Allergy (Intermediate, Verified 03/07/18 08:13) Oral swelling ziprasidone mesylate [From Geodon] Allergy (Intermediate, Verified 03/07/18 08: 13) Oral swelling amoxicillin [Amoxicillin] Allergy (Verified 03/07/18 08:13) Rash Past Medical History - General Information source: Patient - Social History Smoking Status: Never Smoker Cigarette use (# per day): No Chew tobacco use (# tins/day): No Smoking Education Provided: No Frequency of alcohol use: Rare Drug Abuse: None Lives with: Family Family History: Reviewed & Not Pertinent Pulmonary Medical History: Denies: Hx Asthma Endocrine Medical History: Denies: Hx Diabetes Mellitus Type 1, Hx Diabetes Mellitus Type 2 Renal/ Medical History: Denies: Hx Peritoneal Dialysis GI Medical History: Reports: Hx Gastroesophageal Reflux Disease Skin Medical History: Reports Hx Eczema Psychiatric Medical History: Reports: Hx Anxiety, Hx Attention Deficit Hyperactivity Disorder, Hx Bipolar Disorder, Hx Depression, Hx Post Traumatic Stress Disorder - Immunizations Immunizations up to date: Yes Hx Diphtheria, Pertussis, Tetanus Vaccination: Yes - 2013 Review of Systems - Review of Systems Notes: Dictated Physical Exam - Vital signs Vitals: Temp Pulse Resp BP Pulse Ox 99.5 F 106 H 17 132/81 H 99 03/16/18 21:13 03/16/18 21:13 03/16/18 21:13 03/16/18 21:13 03/16/18 21:13 - Notes Notes: Dictated Course - Vital Signs Vital signs: Temp Pulse Resp BP Pulse Ox 99.5 F 106 H 17 132/81 H 99 03/16/18 21:13 03/16/18 21:13 03/16/18 21:13 03/16/18 21:13 03/16/18 21:13 Discharge - Discharge Clinical Impression: Pharyngotonsillitis Otitis media Qualifiers: Otitis media type: suppurative Chronicity: acute Laterality: right Recurrence: not specified as recurrent Spontaneous tympanic membrane rupture: without spontaneous rupture Qualified Code(s): H66.001 - Acute suppurative otitis media without spontaneous rupture of ear drum, right ear Condition: Fair Disposition: HOME, SELF-CARE Instructions: Sore Throat ([facility]), Otitis Media ([facility]) Prescriptions: Clindamycin HCl 300 mg PO TID #30 capsule Hydrocodone/Acetaminophen [Hydrocodon-Acetaminophen 5-325] 1 each PO DAILY PRN # 10 tablet PRN Reason: Prednisone 10 mg PO DAILY #7 tablet
== END 2018-03-16 23:35 | disposition home or self-care (01) ==
LOC: ER 20:42
DX: B00.2 Herpesviral gingivostomatitis and pharyngotonsillitis (principal); H66.001 Acute suppurative otitis media without spontaneous rupture of ear drum, right ear; J02.9 Acute pharyngitis, unspecified; R09.89 Other specified symptoms and signs involving the circulatory and respiratory systems; R09.81 Nasal congestion; H92.01 Otalgia, right ear; R05 Cough
CPT/HCPCS: 99283; 87070; 87880; J7512

== ENCOUNTER 2018-03-22 11:10 | Emergency (ER) | payer SELFPAY ==
[2018-03-22 11:16] VITALS: BP 120/74
--- NOTE | 2018-03-22 11:28 | ER Document Report ---
ED General - General Chief Complaint: Sore Throat Stated Complaint: SORE THROAT, EAR PAIN Time Seen by Provider: 03/22/18 11:20 TRAVEL OUTSIDE OF THE [place] IN LAST 30 DAYS: No - HPI Notes: 22-year-old female who presents with sore throat and URI symptoms. Of note, patient was seen here approximately week ago, started on prednisone and clindamycin. Despite therapy she continues to have symptoms. She describes burning aching throat pain. Also runny nose congestion and some cough. Nonproductive. Body aches but no fevers. Gradual onset, nonradiating. No other modifying factors, no other associated symptoms, no other provocative or palliative factors. Fully immunized for age. - Related Data Allergies/Adverse Reactions: ziprasidone HCl [From Geodon] Allergy (Intermediate, Verified 03/07/18 08:13) Oral swelling ziprasidone mesylate [From Geodon] Allergy (Intermediate, Verified 03/07/18 08: 13) Oral swelling amoxicillin [Amoxicillin] Allergy (Verified 03/07/18 08:13) Rash Past Medical History - Social History Smoking Status: Never Smoker Chew tobacco use (# tins/day): No Frequency of alcohol use: None Drug Abuse: None Family History: Reviewed & Not Pertinent Patient has suicidal ideation: No Patient has homicidal ideation: No Pulmonary Medical History: Denies: Hx Asthma Endocrine Medical History: Denies: Hx Diabetes Mellitus Type 1, Hx Diabetes Mellitus Type 2 Renal/ Medical History: Denies: Hx Peritoneal Dialysis GI Medical History: Reports: Hx Gastroesophageal Reflux Disease Skin Medical History: Reports Hx Eczema Psychiatric Medical History: Reports: Hx Anxiety, Hx Attention Deficit Hyperactivity Disorder, Hx Bipolar Disorder, Hx Depression, Hx Post Traumatic Stress Disorder - Immunizations Immunizations up to date: Yes Hx Diphtheria, Pertussis, Tetanus Vaccination: Yes - 2013 Review of Systems - Review of Systems Notes: Review of systems as in history of present illness, otherwise no significant headache, chest pain, abdominal pain. Physical Exam - Vital signs Vitals: Temp Pulse Resp BP Pulse Ox 98.5 F 101 H 18 120/74 100 03/22/18 11:14 03/22/18 11:14 03/22/18 11:14 03/22/18 11:14 03/22/18 11:14 - Notes Notes: General: Well developed . HEENT: Normocephalic, atraumatic. Pupils equal round reactive to light. No JVD. Bilateral pharyngeal injection without tonsillar purulence. No anterior cervical adenopathy. Chest: No trauma. Respiratory: Good air exchange, normal excursion. Cardiac: Regular rhythm. No murmurs or gallops. Abdomen: Soft, benign. Nondistended. Nontender. Back: No asymmetry or gross abnormality. Motor: Grossly normal power and tone. Neurologic: Alert, nonfocal. Cranial nerves II-12 are intact. Sensation intact. Vascular: Well perfused. Normal peripheral pulses. Skin: No petechiae or purpura. Course - Re-evaluation Re-evalutation: 03/22/18 11:48 This is a well-appearing female with persistent symptoms of viral pharyngitis and URI. Next streptococcal pharyngitis is unlikely, moreover, she was already appropriately treated if she did have streptococcal pharyngitis. Doubt other atypical causes of bacterial pharyngitis. Monos possible but less likely. This time, we will proceed with continued symptomatically treatment, she is advised to follow-up closely with her primary care physician if her symptoms persist. Will use NSAIDs, increase fluids. - Vital Signs Vital signs: Temp Pulse Resp BP Pulse Ox 98.5 F 101 H 18 120/74 100 03/22/18 11:14 03/22/18 11:14 03/22/18 11:14 03/22/18 11:14 03/22/18 11:14 Discharge - Discharge Clinical Impression: URI (upper respiratory infection) Qualifiers: URI type: unspecified viral URI Qualified Code(s): J06.9 - Acute upper respiratory infection, unspecified Condition: Good Disposition: HOME, SELF-CARE Instructions: Sore Throat ([facility]), Viral Syndrome ([facility]) Forms: Return to Work
== END 2018-03-22 11:34 | disposition home or self-care (01) ==
LOC: ER 11:10
DX: J06.9 Acute upper respiratory infection, unspecified (principal); B97.89 Other viral agents as the cause of diseases classified elsewhere; J02.9 Acute pharyngitis, unspecified; R09.89 Other specified symptoms and signs involving the circulatory and respiratory systems; R05 Cough; Z88.8 Allergy status to other drugs, medicaments and biological substances; Z88.0 Allergy status to penicillin
CPT/HCPCS: 99282

== ENCOUNTER 2018-11-22 06:09 | Emergency (ER) | payer OTHER ==
--- NOTE | 2018-11-22 09:32 | ER Document Report ---
Addendum entered and electronically signed by SONY MARCOS PA-C 11/22/18 10:00: Discharge - Discharge Clinical Impression: Congestion of upper airway, Sinus congestion Condition: Good Disposition: HOME, SELF-CARE Instructions: Acetaminophen Additional Instructions: Your symptoms are likely due to a viral infection that is either influenza or similar virus. The only treatment at this time is supportive care including drinking plenty of fluids, Tylenol 1000 mg every 6 hours and/or ibuprofen 600 mg every 6 hours, as well as nausea medicines which you will be sent home with. Your symptoms will likely last for 7-10 days. Please return to the emergency department immediately if you become confused, have persistent vomiting, pass out, have severe headache, or have any other symptoms that are worrisome to you. Follow-up with your primary care doctor in the next several days. Forms: Return to Work Original Note: HPI - HPI Patient complains to provider of: flu like symptoms Time Seen by Provider: 11/22/18 09:05 Pain Level: 2 Context: Generally well-appearing 23-year-old female with no significant past medical history presents to the emergency department with chief complaint of congestion, cough, nausea, vomiting, "cloudy vision "for the last 2 days. She states that she started out very congested and had some sinus pressure with associated shortness of breath. She states that she vomited one time today and then subsequently had cloudy vision. She is also complaining of a scratchy throat. She denies fevers or chills, has intermittent abdominal pain, denies diarrhea. 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 She denies earache, complains of rhinorrhea. No other complaints. - REPRODUCTIVE Reproductive: DENIES: : Past Medical History - Social History Smoking Status: Never Smoker Family History: Reviewed & Not Pertinent Pulmonary Medical History: Denies: Hx Asthma Endocrine Medical History: Denies: Hx Diabetes Mellitus Type 1, Hx Diabetes M ellitus Type 2 Renal/ Medical History: Denies: Hx Peritoneal Dialysis GI Medical History: Reports: Hx Gastroesophageal Reflux Disease Skin Medical History: Reports Hx Eczema Psychiatric Medical History: Reports: Hx Anxiety, Hx Attention Deficit Hyperactivity Disorder, Hx Bipolar Disorder, Hx Depression, Hx Post Traumatic Stress Disorder - Immunizations Immunizations up to date: Yes Hx Diphtheria, Pertussis, Tetanus Vaccination: Yes - 2013 [facility] Provider Document - CONSTITUTIONAL Notes: PHYSICAL EXAMINATION: Reviewed vital signs and charting by RN GENERAL: Alert, interacts well. No acute distress. HEAD: Normocephalic, atraumatic. EYES: Pupils equal, round, and reactive to light. Extraocular movements intact. ENT: Oral mucosa moist, tongue midline. 2+ tonsillar hypertrophy, uvula midline, mild erythema of the oropharynx NECK: Full range of motion. Supple. Trachea midline. 1+ bilateral submandibular lymphadenopathy, no cervical lymphadenopathy LUNGS: Clear to auscultation bilaterally, no wheezes, rales, or rhonchi. No respiratory distress. HEART: Regular rate and rhythm. No murmur ABDOMEN: soft, non-tender. Non-distended. Bowel sounds present in all 4 quadrants. EXTREMITIES: Moves all 4 extremities spontaneously. No edema, No cyanosis. NEUROLOGICAL: Alert and oriented x3. Normal speech. PSYCH: Normal affect, normal mood. SKIN: Warm, dry, normal turgor. No rashes or lesions noted. - INFECTION CONTROL TRAVEL OUTSIDE OF THE [place] IN LAST 30 DAYS: No Course - Re-evaluation Re-evalutation: 11/22/18 09:31 Overall well-appearing, bilateral TMs bulging but not erythematous, patient is not complaining of any earache. Not feel she has an otitis media. Will check for influenza and rapid strep test. 11/22/18 09:57 Rapid strep and influenza were both negative. At this time patient is presenting with a viral illness. Acute otitis media, I am not concerned about a peritonsillar abscess, patient is safe and stable to discharge home. I explained to patient that she can get some [id number] pseudoephedrine from the pharmacist to help with the sinus pressure. I will give her a work note. - Vital Signs Vital signs: Temp Pulse Resp BP Pulse Ox 98.5 F 77 20 127/70 H 99 11/22/18 06:38 11/22/18 06:38 11/22/18 06:38 11/22/18 06:38 11/22/18 06:38 Discharge - Discharge Clinical Impression: Congestion of upper airway, Sinus congestion Condition: Good Disposition: HOME, SELF-CARE Instructions: Acetaminophen Additional Instructions: Your symptoms are likely due to a viral infection that is either influenza or similar virus. The only treatment at this time is supportive care including drinking plenty of fluids, Tylenol 1000 mg every 6 hours and/or ibuprofen 600 mg every 6 hours, as well as nausea medicines which you will be sent home with. Your symptoms will likely last for 7-10 days. Please return to the emergency department immediately if you become confused, have persistent vomiting, pass out, have severe headache, or have any other symptoms that are worrisome to you. Follow-up with your primary care doctor in the next several days.
[2018-11-22 09:55] LABS: A TYPE INFLUENZA AG NEGATIVE (NEGATIVE); B INFLUENZA AG NEGATIVE (NEGATIVE)
[2018-11-22 10:36] VITALS: BP 128/77
== END 2018-11-22 10:36 | disposition home or self-care (01) ==
LOC: ER 06:09
DX: R09.81 Nasal congestion (principal); R05 Cough; R11.2 Nausea with vomiting, unspecified; R06.02 Shortness of breath
CPT/HCPCS: 87070; 87804; 87880; 99283

== ENCOUNTER 2018-12-20 18:50 | Emergency (ER) | payer OTHER ==
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
[2018-12-20 21:43] VITALS: BP 122/65
== END 2018-12-20 21:46 | disposition home or self-care (01) ==
LOC: ER 18:50
DX: O26.891 Other specified pregnancy related conditions, first trimester (principal); R10.2 Pelvic and perineal pain; O99.89 Other specified diseases and conditions complicating pregnancy, childbirth and the puerperium; M54.5 Low back pain; V49.40XA Driver injured in collision with unspecified motor vehicles in traffic accident, initial encounter; Z3A.12 12 weeks gestation of pregnancy; Z88.8 Allergy status to other drugs, medicaments and biological substances; Z88.0 Allergy status to penicillin
CPT/HCPCS: 99283

== ENCOUNTER 2019-02-07 09:43 | Emergency (ER) | payer MEDICAID ==
[2019-02-07 09:48] VITALS: BP 136/68
[2019-02-07] MEDS ORDERED: ERYTHROMYCIN 0.5% OPH OINTMENT 3.5 GM TUBE OD ONE (10:31)
--- NOTE | 2019-02-07 10:37 | ER Document Report ---
HPI - HPI Patient complains to provider of: right eye irritation Time Seen by Provider: 02/07/19 10:26 Onset: Yesterday Onset/Duration: Sudden Pain Level: 2 Context: Patient presents emergency department with complaints of right eye irritation since yesterday. She reports she thought something was in it because it felt like that. Reports clear drainage since yesterday. Denies trauma. Does not wear contacts. Denies other symptoms such as fever vomiting diarrhea. Associated Symptoms: None Exacerbated by: Denies Relieved by: Denies Similar symptoms previously: No Recently seen / treated by doctor: No - CONSTITUTIONAL Constitutional: DENIES: Fever, Chills - EENT EENT: REPORTS: Eye problems - right eye - REPRODUCTIVE Reproductive: DENIES: : Past Medical History - General Information source: Patient Last Menstrual Period: 19 weeks - Social History Smoking Status: Unknown if Ever Smoked Frequency of alcohol use: None Drug Abuse: None Family History: Reviewed & Not Pertinent Patient has suicidal ideation: No Patient has homicidal ideation: No Pulmonary Medical History: Denies: Hx Asthma Endocrine Medical History: Denies: Hx Diabetes Mellitus Type 1, Hx Diabetes Mellitus Type 2 Renal/ Medical History: Denies: Hx Peritoneal Dialysis GI Medical History: Reports: Hx Gastroesophageal Reflux Disease Skin Medical History: Reports Hx Eczema Psychiatric Medical History: Reports: Hx Anxiety, Hx Attention Deficit Hyperactivity Disorder, Hx Bipolar Disorder, Hx Depression, Hx Post Traumatic Stress Disorder Surgical Hx: Negative - Immunizations Immunizations up to date: Yes Hx Diphtheria, Pertussis, Tetanus Vaccination: Yes - 2013 [facility] Provider Document - CONSTITUTIONAL Agree With Documented VS: Yes General Appearance: WD/WN, No Apparent Distress Notes: Patient presents to the emergency department with complaints of right eye irritation. Patient reports symptoms started yesterday. She felt like s omething was in the eye then noted clear drainage since yesterday. Denies matting. Denies other symptoms such as fever vomiting diarrhea. Patient does not wear contacts. - INFECTION CONTROL TRAVEL OUTSIDE OF THE [place] IN LAST 30 DAYS: No - HEENT HEENT: Atraumatic, Normocephalic, PERRLA - NECK Neck: Supple - RESPIRATORY Respiratory: No Respiratory Distress - CARDIOVASCULAR Cardiovascular: Regular Rate - MUSCULOSKELETAL/EXTREMETIES Musculoskeletal/Extremeties: MAEW, FROM - NEURO Level of Consciousness: Awake, Alert, Appropriate Motor/Sensory: No Motor Deficit - DERM Integumentary: Warm, Dry Course - Re-evaluation Re-evalutation: 02/07/19 11:26 Patient instructed on erythromycin treatment for abrasion. Instructed to monitor her eye for redness swelling pain, for those symptoms and definitely follow-up with ophthalmology. Her mother and patient verbalized understanding Dictation of this chart was performed using voice recognition software; therefore, there may be some unintended grammatical errors. - Vital Signs Vital signs: Temp Pulse Resp BP Pulse Ox 98.5 F 88 18 136/68 H 98 02/07/19 09:44 02/07/19 09:44 02/07/19 09:44 02/07/19 09:44 02/07/19 09:44 Procedures - Eye Procedure Right Eye Irrigated w/ Saline (ccs): 10 Alcaine Drops Administered: Yes - tetracaine Fluorescein applied: Right Antibiotic Oinment/Drps Admin: Right eye Slit lamp used: No Notes: 02/07/19 10:36 Tetracaine applied. Patient reports immediate relief after tetracaine is applied. [place] lamp utilized small abrasion noted to right conjunctivae approximately 0900. Discharge - Discharge Clinical Impression: Irritation of right eye Conjunctival abrasion Qualifiers: Encounter type: initial encounter Laterality: right Qualified Code(s): S05.01XA - Injury of conjunctiva and corneal abrasion without foreign body, right eye, initial encounter Condition: Stable Disposition: HOME, SELF-CARE Instructions: Antibiotic Therapy ([facility]), Erythromycin ([facility]) Additional Instructions: *You have been evaluated for eye irritation, conjunctivia abrasion *Apply eyedrops as to directed half-inch ribbon to right bottom lid 3 times a day for 4 days *Good hand washing- Do not reuse wash clothes or towels after wiping eyes *Follow up with an piggyback clerk within 1 week for recheck *Return to ED for worsening condition, changes, needs, increasing eye irritation, redness/swelling of the eye Monitor your blood pressure. Your blood pressure was elevated today. This may be because you were anxious, in pain or because you need medication. It is important to follow up with your primary care provider for full evaluation. Forms: Elevated Blood Pressure
== END 2019-02-07 10:47 | disposition home or self-care (01) ==
LOC: ER 09:43
DX: O9A.212 Injury, poisoning and certain other consequences of external causes complicating pregnancy, second trimester (principal); S05.01XA Injury of conjunctiva and corneal abrasion without foreign body, right eye, initial encounter; X58.XXXA Exposure to other specified factors, initial encounter; Z3A.19 19 weeks gestation of pregnancy
CPT/HCPCS: 99283; J3490

== ENCOUNTER 2019-02-08 19:23 | Emergency (ER) | payer MEDICAID ==
[2019-02-08 19:31] VITALS: BP 118/74
--- NOTE | 2019-02-08 21:33 | ER Document Report ---
ED Eye Complaint - General Mode of Arrival: Ambulatory Information source: Patient TRAVEL OUTSIDE OF THE [place] IN LAST 30 DAYS: No - HPI Onset: This evening Eye location: Right Injury: No Occurred at: Home Quality of pain: Pressure Severity: Mild Pain Level: 1 Safety glasses worn: No Contact lenses worn: No Associated symptoms: None - General Chief Complaint: Eye Problem Stated Complaint: POSSIBLE EYE INJURY Time Seen by Provider: 02/08/19 21:15 Primary Care Provider: KAI PANG MD [ACTIVE STAFF] - Follow up tomorrow Notes: 23-year-old female presented to ED for bleeding in the conjunctivae after she vomited forcefully at dinnertime. She was seen yesterday for eye irritation and started on erythromycin eye ointment. She states she vomited today because she is 19 weeks and she ate barbecue for dinner. She states there is some pressure under the eye but otherwise no other pain. She does have a mild black eye. Patient is alert oriented respirations regular and unlabored speaking in full sentences walks with a even steady gait. (LEILA BRAGA) - Related Data Allergies/Adverse Reactions: ziprasidone HCl [From Geodon] Allergy (Intermediate, Verified 03/07/18 08:13) Oral swelling ziprasidone mesylate [From Geodon] Allergy (Intermediate, Verified 03/07/18 08:13) Oral swelling amoxicillin [Amoxicillin] Allergy (Verified 03/07/18 08:13) Rash Past Medical History - General Information source: Patient - Social History Smoking Status: Never Smoker Frequency of alcohol use: None Drug Abuse: None Lives with: Family Family History: Reviewed & Not Pertinent Patient has suicidal ideation: No Patient has homicidal ideation: No - Past Medical History Cardiac Medical History: Reports: None Pulmonary Medical History: Reports: None EENT Medical History: Reports: None Neurological Medical History: Reports: None Endocrine Medical History: Reports: None Renal/ Medical History: Reports: None Malignancy Medical History: Reports: None GI Medical History: Reports: Hx Gastroesophageal Reflux Disease Musculoskeletal Medical History: Reports None Skin Medical History: Reports Hx Eczema Psychiatric Medical History: Reports: Hx Anxiety, Hx Attention Deficit Hyperactivity Disorder, Hx Bipolar Disorder, Hx Depression, Hx Post Traumatic Stress Disorder Traumatic Medical History: Reports: None Infectious Medical History: Reports: None Surgical Hx: Negative Past Surgical History: Reports: None - Immunizations Immunizations up to date: Yes Hx Diphtheria, Pertussis, Tetanus Vaccination: Yes - 2013 Review of Systems - Review of Systems Constitutional: No symptoms reported EENT: Eye pain - Conjunctival hemorrhage with mild bruising to the eye Cardiovascular: No symptoms reported Respiratory: No symptoms reported Gastrointestinal: No symptoms reported Genitourinary: No symptoms reported Female Genitourinary: No symptoms reported Musculoskeletal: No symptoms reported Skin: No symptoms reported Hematologic/Lymphatic: No symptoms reported Neurological/Psychological: No symptoms reported -: Yes All other systems reviewed and negative Physical Exam - Vital signs Interpretation: Normal - General General appearance: Appears well, Alert - HEENT Head: Normocephalic, Atraumatic Eyes: Periorbital ecchymosis, Periorbital edema - Very mild, Other - Subconjunctival hemorrhage Pupils: PERRL Anterior chamber: Normal Fundascopic: Normal Ears: Normal External canal: Normal Tympanic membrane: Normal Sinus: Normal Nasal: Normal Mouth/Lips: Normal Mucous membranes: Normal Pharynx: Normal Neck: Normal - Respiratory Respiratory status: No respiratory distress Chest status: Nontender Breath sounds: Normal Chest palpation: Normal - Cardiovascular Rhythm: Regular Heart sounds: Normal auscultation Murmur: No - Abdominal Inspection: Normal Distension: No distension Bowel sounds: Normal Tenderness: Nontender Organomegaly: No organomegaly - Back Back: Normal, Nontender - Extremities General upper extremity: Normal inspection, Nontender, Normal color, Normal ROM, Normal temperature General lower extremity: Normal inspection, Nontender, Normal color, Normal ROM, Normal temperature, Normal weight bearing. No: Vahe's sign - Neurological Neuro grossly intact: Yes Cognition: Normal Orientation: AAOx4 [place] Coma Scale Eye Opening: Spontaneous Александр Coma Scale Verbal: Oriented Александр Coma Scale Motor: Obeys Commands [place] Coma Scale Total: 15 Speech: Normal Motor strength normal: LUE, RUE, LLE, RLE Sensory: Normal - Psychological Associated symptoms: Normal affect, Normal mood - Skin Skin Temperature: Warm Skin Moisture: Dry Skin Color: Normal - Vital signs Vitals: Temp Pulse Resp BP Pulse Ox 98.5 F 81 20 118/74 99 02/08/19 19:29 02/08/19 19:29 02/08/19 19:29 02/08/19 19:29 02/08/19 19:29 Course - Re-evaluation Re-evalutation: 02/08/19 22:17 I personally and independently obtained patient history and examined the patient in conjunction with the APC and agree with the assessment, treatment plan and disposition of the patient as recorded by the APC, and have reviewed the APC's note. HISTORY OF PRESENT ILLNESS: Patient is a 23-year-old female that presents to the emergency department for chief complaint of right eye redness. ROS: Constitutional: Negative for fever. Cardiovascular: Negative for chest pain. Respiratory: Negative for shortness of breath. Gastrointestinal: Negative for vomiting or abdominal pain Musculoskeletal: Negative for arm, leg or back pain Skin: Negative for rash. Neurological: Negative for weakness or numbness. Other than noted above, the 12 point review of systems was reviewed with the patient and were negative, all pertinent findings are included in the HPI. PHYSICAL EXAMINATION: Vital signs reviewed, nursing noted reviewed. GENERAL: Well-appearing, well-nourished and in no acute distress. HEAD: Atraumatic, normocephalic. EYES: Right eye noted to have significant sub-conjunctival hemorrhage, with minimal chemosis medially, there is mild ecchymosis noted and mild periorbital swelling as well. ENT: nares patent, Moist mucous membranes. NECK: Normal range of motion, supple without lymphadenopathy LUNGS: No respiratory distress HEART: Normal perfusion NEUROLOGICAL: No focal neurological deficits. Moves all extremities spontaneously Motor and sensory grossly intact on exam. PSYCH: Normal mood, normal affect. SKIN: Warm, Dry, normal turgor, no rashes or lesions noted on exposed skin MEDICAL DECISION MAKING: Patient clinical exam consistent with subconjunctival hemorrhage, from vomiting, patient was advised warm compresses, she was Jona prescribed erythromycin ointment from her previous visit for corneal abrasion advised to continue this as well and to follow-up with ophthalmology. Please review detail APC documentation. *Note is created using voice recognition software and may contain spelling, syntax or grammatical errors. (CHAS MENSAH) 02/08/19 21:[address] Mensah to examine the eye. She does have a subconjunctival hemorrhage. She was seen yesterday for corneal abrasion. There is some pressured under the eyelid due to the hemorrhage. She does have a black eye. He agreed this was just took subconjunctival hemorrhage and gave her instructions for warm compresses Tylenol and to follow-up with [facility]. These instructions were reinforced and patient was discharged home. (LEILA BRAGA) - Vital Signs Vital signs: Temp Pulse Resp BP Pulse Ox 98.5 F 81 20 118/74 99 02/08/19 19:29 02/08/19 19:29 02/08/19 19:29 02/08/19 19:29 02/08/19 19:29 Discharge - Discharge Clinical Impression: Subconjunctival bleed Qualifiers: Laterality: right Qualified Code(s): H11.31 - Conjunctival hemorrhage, right eye Condition: Stable Disposition: HOME, SELF-CARE Additional Instructions: Subconjunctival Hemorrhage You've had an episode of bleeding between the sclera (white of the eye) and the membrane which covers it. While ugly, this bleeding is not dangerous in any way. Your eye has been examined to ensure that no internal hemorrhage is pr esent. While subconjunctival hemorrhage can be caused by a minor injury, it is usually due to coughing, sneezing, straining, or rubbing the eye. There is no specific treatment. Expect the red area to spread considerably. Avoid rubbing the eye. It may take two or three weeks for the blood to clear. If you have any pain, discharge from the eye, or problems with your vision, call the doctor or return immediately for re-evaluation. Warm moist washcloth up to 20 minutes 4 times a day until followed up with ophthalmology. Acetaminophen Acetaminophen may be taken for pain relief or fever control. It's much safer than aspirin, offering a wider range of "safe" dosages. It is safe during . Some brand names are Tylenol, Panadol, Datril, Anacin 3, Tempra, and Liquiprin. Acetaminophen can be repeated every four hours. The following are maximum recommended dosages: WEIGHT Dose Drops Elixir Chewabl e(80mg) (LBS.) drprs=droppers tsp=teaspoon 6 40 mg .4 ml (1/2) 6-11 80 mg .8 ml (full) 1/2 tsp 1 tab 12-16 120 mg 1 1/2 drprs 3/4 tsp 1 1/2 tabs 17-23 160 mg 2 drprs 1 tsp 2 tabs 24-30 240 mg 3 drprs 1 1/2 tsp 3 tabs 30-35 320 mg 2 tsp 4 tabs 36-41 360 mg 2 1/4 tsp 4 1/2 tabs 42-47 400 mg 2 1/2 tsp 5 tabs 48-53 480 mg 3 tsp 6 tabs 54-59 520 mg 3 1/4 tsp 6 1/2 tabs 60-64 560 mg 3 1/2 tsp 7 tabs 65-70 600 mg 3 3/4 tsp 7 1/2 tabs 71-76 640 mg 4 tsp 8 tabs 77-82 720 mg 4 1/2 tsp 9 tabs 83-88 800 mg 5 tsp 10 tabs >89 pounds or adults 650 mg to 900 mg Acetaminophen can be repeated every four hours. Maximum daily dose not to exceed 4000 mg. These maximum recommended dosages are slightly higher than the dosages written on the product container, but these dosages are very safe and well below the toxic dosage for acetaminophen. Continue with your antibiotic ointment as prescribed FOLLOW-UP CARE: If you have been referred to a physician for follow-up care, call the physicians office for an appointment as you were instructed or within the next two days. If you experience worsening or a significant change in your symptoms, notify the physician immediately or return to the Emergency Department at any time for re-evaluation. Referrals: KAI PANG MD [ACTIVE STAFF] - Follow up tomorrow
== END 2019-02-08 21:45 | disposition home or self-care (01) ==
LOC: ER 19:23
DX: O26.892 Other specified pregnancy related conditions, second trimester (principal); H11.31 Conjunctival hemorrhage, right eye; O21.9 Vomiting of pregnancy, unspecified; O9A.212 Injury, poisoning and certain other consequences of external causes complicating pregnancy, second trimester; S05.00XA Injury of conjunctiva and corneal abrasion without foreign body, unspecified eye, initial encounter; X58.XXXA Exposure to other specified factors, initial encounter; Z3A.19 19 weeks gestation of pregnancy; Z88.8 Allergy status to other drugs, medicaments and biological substances; Z88.0 Allergy status to penicillin
CPT/HCPCS: 99282

== ENCOUNTER 2019-04-19 13:31 | Outpatient (CLI) | payer MEDICAID ==
[2019-04-19 14:10] LABS: APPEARANCE,URINE SLIGHTLY-CLOUDY; BILIRUBIN,URINE NEGATIVE (NEGATIVE); COLOR,URINE YELLOW; GLUCOSE, URINE NEGATIVE (NEGATIVE); KETONES,URINE TRACE mg/dL (NEGATIVE); LEUKOCYTE ESTERASE,URINE NEGATIVE (NEGATIVE); NITRITE,URINE NEGATIVE (NEGATIVE); PROTEIN,URINE 30 mg/dL (NEGATIVE); URINE SPECIFIC GRAVITY 1.032; UROBILINOGEN,URINE NEGATIVE mg/dL (<2.0)
[2019-04-19 14:25] LABS: URINE AMPHETAMINES SCREEN NEGATIVE; URINE BARBITURATES SCREEN NEGATIVE; URINE BENZODIAZEPINES SCREEN NEGATIVE; URINE COCAINE SCREEN NEGATIVE; URINE MARIJUANA (THC) SCREEN NEGATIVE; URINE METHADONE SCREEN NEGATIVE; URINE PHENCYCLIDINE SCREEN NEGATIVE
[2019-04-19] MEDS ORDERED: BETAMET ACET/BETAMET NA INJ 6 MG/1 ML ONE (14:30)
[2019-04-19] MEDS ORDERED: MAGNESIUM SULFATE 4 GM/100 ML RTUPB IV ONE ×2 (14:44→14:46)
[2019-04-19] MEDS ORDERED: MAGNESIUM SULFATE 20 GM/500 ML RTUINJ IV ONE (14:47)
[2019-04-19] MEDS ORDERED: AMPICILLIN SOD INJ 2 GM VIAL ONE (14:47)
[2019-04-19] MEDS ORDERED: AMPICILLIN SOD INJ 2 GM VIAL IV ONE (14:47)
[2019-04-19] MEDS ORDERED: MAGNESIUM SULFATE 20 GM/500 ML RTUINJ IV PRN (14:49)
[2019-04-19] MEDS ORDERED: CLINDAMYCIN 900 MG/D5W RTU 50 ML IV SCH (15:00)
[2019-04-19] MEDS ORDERED: RINGERS SOLUTION,LACTATED 1,000 ML IV PRN (15:02)
[2019-04-19] MEDS ORDERED: RINGERS SOLUTION,LACTATED 1,000 ML IV ONE (15:02)
[2019-04-19 15:05] LABS: BACTERIA (WET MOUNT) 3+ BACTERIA SEEN; EPITHELIALS (WET MOUNT) 3+ EPITHELIALS SEEN; RBCS (WET MOUNT) RARE RBCS SEEN; T.VAGINALIS (WET MOUNT) NO TRICHOMONAS SEEN; WBCS (WET MOUNT) 2+ WBCS SEEN; YEAST (WET MOUNT) NO YEAST SEEN
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
--- NOTE | 2019-04-19 15:15 | PDOC TRANSFER SUMMARY ---
General Admission Date/PCP: STERLING WILKERSON MD Admission Date: 04/19/19 Transfer Date: 04/19/19 Accepting Facility: [facility] Accepting Physician: Holden Porter Resuscitation Status: Full Code - Transfer Diagnosis (1) premature rupture of membranes Is this a current diagnosis for this admission?: Yes (2) Is this a current diagnosis for this admission?: Yes - Transfer Medications Home Medications: Omeprazole Magnesium [Prilosec Otc] 20 mg PO DAILY 07/30/16 Transfer Medications: Current Medications Azithromycin 500 mg/ Dextrose 250 mls @ 250 mls/hr IV DAILY@1600 AGUSTÍN Stop: 04/26/19 15:59 Magnesium Sulfate (Magnesium Sulfate Rtu 4 Gm/100 Ml Premix Bag) 4 gm in 100 mls @ 100 mls/hr IV NOW ONE Stop: 04/19/19 15:43 Last Admin: 04/19/19 14:50 Dose: 50 mls/hr, 50 mls/hr Documented by: Magnesium Sulfate (Magnesium Sulfate Rtu 20 Gm/500 Ml Premix) 20 gm in 500 mls @ 0 mls/hr IV CONTINUOUS PRN PRN Reason: THIS MED IS NOT "PRN" Stop: 05/19/19 14:48 Lactated Ringer's (Lactated Ringers 1000 Ml Iv Soln) 1,000 mls @ 125 mls/hr IV CONTINUOUS PRN PRN Reason: THIS MED IS NOT "PRN" Stop: 05/19/19 15:01 Lactated Ringer's (Lactated Ringers 1000 Ml Iv Soln) 1,000 mls @ 0 mls/hr IV BOLUS ONE Stop: 04/19/19 15:03 - Allergies Allergies/Adverse Reactions: ziprasidone HCl [From Geodon] Allergy (Intermediate, Verified 04/19/19 13:53) Oral swelling ziprasidone mesylate [From Geodon] Allergy (Intermediate, Verified 04/19/19 13:53) Oral swelling amoxicillin [Amoxicillin] Allergy (Verified 04/19/19 13:53) Rash Hospital Course Hospital Course: presented with c/o leakage of fluid. Actipriom is positive. spec exam reveals small amount of pooling and cervix visually dilated to approximately 1 cm. Fern slide sent to lab. KIANA ordered and CL ordered Physical Exam Vital Signs: Intake & Output 04/18/19 04/19/19 04/20/19 06:59 06:59 06:59 Weight 105.3 kg General appearance: PRESENT: no acute distress, cooperative - see above HPI Results Laboratory Results: 04/19/19 13:45 Urine Color YELLOW Urine Appearance SLIGHTLY-CLOUDY Urine pH 6.0 Ur Specific [place] 1.032 Urine Protein 30 H Urine Glucose (UA) NEGATIVE Urine Ketones TRACE H Urine Blood NEGATIVE Urine Nitrite NEGATIVE Ur Leukocyte Esterase NEGATIVE Plan Discharge Plan: transfer to [facility] for level 3 NICU secondary to EGA of 29 1/7 wks with rupture of membranes. Dr. Porter accepting physician (thank you for assistance). ACS protocol initiated and magnesium sulfate started with Ampicillin and Zithromax to prolong latency. (pt indicates her allergic reaction to Amoxicillin was when she was a baby and she had a rash.) Time Spent: Greater than 30 Minutes
--- NOTE | 2019-04-19 15:54 | RADIOLOGY REPORT (SQ) ---
EXAM DESCRIPTION: U/S OB LIMITED COMPLETED DATE/TIME: 04/19/2019 3:42 pm REASON FOR STUDY: 29 wks with SROM. Need KIANA and presentation COMPARISON: None. TECHNIQUE: Limited transabdominal grayscale ultrasound for evaluation of specific requested obstetri stephany parameters. LIMITATIONS: None. FINDINGS: KIANA: 8.5 cm. FHR: 155 beats per minute. PRESENTATION: Cephalic. PLACENTA: Posterior ANATOMY: Not assessed OTHER: No other significant findings. IMPRESSION: LIMITED OBSTETRICAL ULTRASOUND WITH MEASURED PARAMETERS DELINEATED ABOVE. Trimester of : Third trimester - 28 weeks to delivery. TECHNICAL DOCUMENTATION: JOB ID: [id number] [employer]- All Rights Reserved Reading location - IP/workstation name: [email or web address]
[2019-04-19] MEDS ORDERED: AZITHROMYCIN 500 MG in DEXTROSE 5%-WATER 250 ML IV SCH (16:00)
[2019-04-19 16:36] LABS: CHLAM PCR NOT DETECTED (NOT DETECT)
== END 2019-04-19 15:19 | disposition home or self-care (01) ==
LOC: LC 13:31
PROVIDERS: ATTEND Obstetrics & Gynecology
DX: O42.913 Preterm premature rupture of membranes, unspecified as to length of time between rupture and onset of labor, third trimester (principal); Z3A.29 29 weeks gestation of pregnancy
CPT/HCPCS: 94760; 96372; 87210; 81005; 80307; 87491; 87591; 84112; 76815; Q0114; J3475 ×2; J0290; J0702; J7060; J0456